=== PATIENT | female | born 1930 | race Caucasian/White ===

== ENCOUNTER 2016-10-14 10:04 | Outpatient (CLI) | payer MEDICARE, OTHER ==
[2015-11-19 19:37] VITALS: BP 161/75
== END 2016-10-14 10:05 ==
LOC: POD 10:04
PROVIDERS: ATTEND Podiatrist Public Medicine
DX: B35.1 Tinea unguium (principal); L60.0 Ingrowing nail; M79.674 Pain in right toe(s); M79.675 Pain in left toe(s)
CPT/HCPCS: 11721; G0463

== ENCOUNTER 2017-01-13 09:13 | Outpatient (CLI) | payer MEDICARE, OTHER ==
[2015-11-19 19:37] VITALS: BP 161/75
== END 2017-01-13 09:14 ==
LOC: POD 09:13
PROVIDERS: ATTEND Podiatrist Public Medicine
DX: B35.1 Tinea unguium (principal); L60.0 Ingrowing nail; M79.674 Pain in right toe(s); M79.675 Pain in left toe(s)
CPT/HCPCS: 11721; G0463

== ENCOUNTER 2017-01-14 14:50 | Outpatient (CLI) | payer MEDICARE, OTHER ==
[2015-11-19 19:37] VITALS: BP 161/75
--- NOTE | 2017-01-14 15:51 | Diagnostic Imaging Report ---
[facility] [address] [facility] [address] [address] Report Submission Date: Jan 14, 2017 3:09:42 PM CDT Patient Study Name: CARLOS JACKSON Date: Jan 14, 2017 2:58:19 PM CDT Modality Type: CR Gender: F Description: SHOULDER : 34 Institution: [facility] Physician: LOUISE HECTOR 2 views of the right shoulder History: PAIN IN PROXIMAL HUMERUS AND DECREASED ROM X COUPLE WEEKS. NO KNOWN INJURY To the findings: No comparison studies No evidence of acute fracture or dislocation of the right shoulder Glenohumeral alignment is preserved, no osseous erosion or periosteal reaction Impression: No evidence of acute fracture or dislocation Electronically signed on Jan 14, 2017 3:09:42 PM CDT by: Darcie MACKEY
== END 2017-01-14 14:52 ==
LOC: RAD 14:50
PROVIDERS: ATTEND Family Medicine
DX: M25.511 Pain in right shoulder (principal)
CPT/HCPCS: 73030

== ENCOUNTER 2017-01-24 08:21 | Outpatient (CLI) | payer MEDICARE, OTHER ==
[2015-11-19 19:37] VITALS: BP 161/75
--- NOTE | 2017-01-24 11:18 | Diagnostic Imaging Report ---
[facility] [address] [facility] [address] Report Submission Date: Jan 24, 2017 9:51:55 AM CDT Patient Study Name: CARLOS JACKSON Date: Jan 24, 2017 9:05:17 AM CDT Modality Type: MR Gender: F Description: MRI UP EXT JNT W/O CONTRAST : 34 Institution: [facility] Physician: LOUISE HECTOR - LYDIA Magnetic resonance imaging of the right shoulder without contrast History: Arm pain and limited range of motion. Findings: Multiplanar magnetic resonance imaging of the right shoulder is performed without contrast. 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 A nearly full thickness bursal surface tear is observed through the anterior aspect of the supraspinatus insertion and is associated with a moderate subacromial-subdeltoid bursal effusion. The infraspinatus, teres minor, long head biceps, and subscapularis tendons are intact. There is no glenohumeral joint effusion. The glenoid labrum is unremarkable. Impression: 1. Nearly full thickness bursal surface tear of the supraspinatus tendon insertion. 2. Moderate bursal effusion. 3. Minimal right acromioclavicular osteoarthritis. Electronically signed on Jan 24, 2017 9:51:55 AM CDT by: Víctor MACKEY
== END 2017-01-24 08:26 | disposition home or self-care (01) ==
LOC: RAD 08:21
PROVIDERS: ATTEND Family Medicine
DX: M25.511 Pain in right shoulder (principal)
CPT/HCPCS: 73221

== ENCOUNTER 2017-02-11 08:40 | Outpatient (CLI) | payer MEDICARE, OTHER ==
[2015-11-19 19:37] VITALS: BP 161/75
[2017-02-11 08:57] LABS: EOSINOPHILS % 2.6 % (0.0-6.8); MEAN CORPUSCULAR HEMOGLOBIN 28.4 pg (28.0-34.0); MONOCYTES % 5.2 % (0.0-11.0); NEUTROPHILS # 4.2 # k/uL (1.4-7.7)
[2017-02-11 09:16] LABS: eGFR (African) > 60; eGFR (Non-African) > 60
== END 2017-02-11 08:42 ==
LOC: LAB 08:40
PROVIDERS: ATTEND Family Medicine
DX: I10 Essential (primary) hypertension (principal); E78.5 Hyperlipidemia, unspecified; D50.9 Iron deficiency anemia, unspecified
CPT/HCPCS: 36415; 80053; 80061; 85025

== ENCOUNTER 2017-04-14 11:12 | Outpatient (CLI) | payer MEDICARE, OTHER ==
[2015-11-19 19:37] VITALS: BP 161/75
== END 2017-04-14 11:13 ==
LOC: POD 11:12
PROVIDERS: ATTEND Podiatrist Public Medicine
DX: B35.1 Tinea unguium (principal); L60.0 Ingrowing nail; M79.675 Pain in left toe(s); M79.674 Pain in right toe(s)
CPT/HCPCS: 11721; G0463

== ENCOUNTER 2017-06-30 11:21 | Outpatient (CLI) | payer MEDICARE, OTHER ==
[2015-11-19 19:37] VITALS: BP 161/75
== END 2017-06-30 11:22 ==
LOC: POD 11:21
PROVIDERS: ATTEND Podiatrist Public Medicine
DX: B35.1 Tinea unguium (principal); L60.0 Ingrowing nail; M79.674 Pain in right toe(s); M79.675 Pain in left toe(s)
CPT/HCPCS: 11721; G0463

== ENCOUNTER 2017-08-28 11:36 | Emergency (ER) | payer MEDICARE, OTHER ==
--- NOTE | 2017-08-28 11:52 | ED Physician Documentation ---
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 No fever, no headache no other complatints) - ROS CONST: denies: fever, recent illness EYES/ENT: sore throat. denies: nasal drainage, nasal congestion CVS/RESP: denies: cough GI/: denies: nausea MS/SKIN/LYMPH: denies: rash NEURO/PSYCH: denies: headache, dizziness - PAST HX Past History: other (HTN, [place], hyperlipidemia ) Other History: none Surgeries/Procedures: other (see nurse ) Immunizations: UTD, referred to PCP Allergies/Adverse Reactions: Allergies Allergy/AdvReac Type Severity Reaction Status Date / Time ciprofloxacin [From Cipro] Allergy Intermediate Hives Verified 11/15/15 23:18 ciprofloxacin HCl Allergy Intermediate Hives Verified 11/15/15 23:18 [From Cipro] glyburide [From Micronase] Allergy Verified 11/15/15 23:18 nitrofurantoin Allergy Verified 11/15/15 23:18 macrocrystalline [From Macrodantin] Sulfa (Sulfonamide Allergy Verified 11/15/15 23:18 Antibiotics) Home Medications: Ambulatory Orders Medication Instructions Recorded Aspirin [Denise] 81 mg PO D 06/14/14 Calcium Carbonate/Vitamin D3 1 tab PO D 06/14/14 [Calcium 500 + Vit D3 400 Tab] Latanoprost 1 drop TOP D 06/14/14 Losartan Potassium [Cozaar] 50 mg PO D 06/14/14 Sotalol HCl [Sotalol] 40 mg PO BID 06/14/14 Timolol [Betimol] 1 drop TOP BID 06/14/14 amLODIPine BESYLATE [Norvasc] 5 mg PO D 06/14/14 Atorvastatin Calcium [Lipitor] 20 mg PO HS u2 01/29/15 - SOCIAL HX Smoking History: non-smoker Alcohol Use: none Drug Use: none - FAMILY HX Family History: No - VITAL SIGNS Vital Signs: Vital Signs Temp Pulse Resp BP Pulse Ox 161/75 11/19/15 19:30 - REVIEWED ASSESSMENTS Nursing Assessment Reviewed: Yes Vitals Reviewed: Yes General Adult Physical Exam - PHYSICAL EXAM GENERAL APPEARANCE: no distress EENT: eye inspection normal, pharyngeal erythema (mild redness no drainge ) NECK: normal inspection RESPIRATORY: no resp distress, chest non-tender, breath sounds normal CVS: reg rate & rhythm, heart sounds normal, equal pulses ABDOMEN: soft SKIN: warm/dry, normal color EXTREMITIES: non-tender NEURO: oriented X3, CN's nml as tested, motor nml, sensation nml Discharge Clincal Impression: Pharyngitis Qualifiers: Pharyngitis/tonsillitis etiology: unspecified etiology Qualified Code(s): J02.9 - Acute pharyngitis, unspecified Referrals: Jesus James MD [Primary Care Provider] - 2 Days Condition: Stable Disposition: 01 HOME, SELF-CARE Decision to Admit: NO Date of Decison to Admit: 08/28/17 Decision Time: 11:59
[2017-08-28 12:06] VITALS: BP 148/57
== END 2017-08-28 12:06 | disposition home or self-care (01) ==
LOC: ED 11:36
DX: J02.9 Acute pharyngitis, unspecified (principal)
CPT/HCPCS: 87070; 87880; 99283

== ENCOUNTER 2017-09-15 11:14 | Outpatient (CLI) | payer MEDICARE, OTHER | END 2017-09-15 14:10 | LOC: POD 11:14 | PROVIDERS: ATTEND Podiatrist Public Medicine | DX: B35.1 Tinea unguium (principal); L60.0 Ingrowing nail; M79.674 Pain in right toe(s); M79.675 Pain in left toe(s) | CPT/HCPCS: 11721; G0463 ==

== ENCOUNTER 2017-12-01 11:14 | Outpatient (CLI) | payer MEDICARE, OTHER | END 2017-12-01 11:16 | LOC: POD 11:14 | PROVIDERS: ATTEND Podiatrist Public Medicine | DX: B35.1 Tinea unguium (principal); L60.0 Ingrowing nail; M79.674 Pain in right toe(s); M79.675 Pain in left toe(s) | CPT/HCPCS: 11721; G0463 ==

== ENCOUNTER 2017-12-13 08:05 | Outpatient (CLI) | payer MEDICARE, OTHER ==
[2017-12-13 09:32] LABS: eGFR (African) > 60; eGFR (Non-African) > 60
[2017-12-13 12:47] LABS: BASO % 0.7 % (0.0-1.5); EOS % 2.4 % (0.0-6.8); LYMPH ABS # 1.87 thou/uL (0.60-4.00); MCH. 30.5 pg (28.0-34.0); MCV 94.2 fL (80.0-100.0); MONOCYTE % 7.1 % (0.0-11.0); MONOCYTE ABS # 0.45 thou/uL (0.00-0.90); PLATELET COUNT 233 thou/uL (130-400)
== END 2017-12-13 08:30 ==
LOC: LAB 08:05
PROVIDERS: ATTEND Family Medicine
DX: I10 Essential (primary) hypertension (principal); E78.5 Hyperlipidemia, unspecified; R53.82 Chronic fatigue, unspecified
CPT/HCPCS: 80053; 80061; 84443; 85025

== ENCOUNTER 2018-02-09 08:44 | Outpatient (CLI) | payer MEDICARE, OTHER | END 2018-02-09 08:45 | LOC: POD 08:44 | PROVIDERS: ATTEND Podiatrist Public Medicine | DX: B35.1 Tinea unguium (principal); L60.0 Ingrowing nail; M79.674 Pain in right toe(s); M79.675 Pain in left toe(s) | CPT/HCPCS: 11721; G0463 ==

== ENCOUNTER 2018-11-22 12:17 | Outpatient (CLI) | payer MEDICARE, OTHER | END 2018-11-22 12:19 | LOC: LABRHC 12:17 | PROVIDERS: ATTEND Family Medicine | DX: R30.0 Dysuria (principal); B95.2 Enterococcus as the cause of diseases classified elsewhere | CPT/HCPCS: 87086 ==

== ENCOUNTER 2019-08-14 12:06 | Outpatient (CLI) | payer MEDICARE, OTHER ==
[2019-08-14 17:04] LABS: eGFR (Non-African) > 60
[2019-08-14 17:05] LABS: HDL 40 mg/dL (>40)
== END 2019-08-14 12:11 ==
LOC: LAB 12:06
PROVIDERS: ATTEND Family Medicine
DX: E78.5 Hyperlipidemia, unspecified (principal)
CPT/HCPCS: 36415; 80053; 80061

== ENCOUNTER 2019-10-17 12:04 | Outpatient (CLI) | payer MEDICARE, OTHER | END 2019-10-17 12:09 | LOC: LABRHC 12:04 | PROVIDERS: ATTEND Family Medicine | DX: E83.52 Hypercalcemia (principal) | CPT/HCPCS: 80053 ==